=== PATIENT | female | born 1985 | race Caucasian/White ===

== ENCOUNTER 2019-04-17 | Inpatient (IN) | payer OTHER ==
[~2019-04-17] VITALS: Ht 160 cm; Wt 123.8 kg
[2019-04-17] VITALS (8 sets, daily range): BP systolic 155–211; BP diastolic 83–117
--- NOTE | ~2019-04-17 | CON ---
[address] [address] CONSULTATION Name: EUGENIO MARCOS [place] Room: [address] IN .R.#: [id number] Admission: 04/17/19 Attend Phys: Earl Todd MD Discharge: Date of : 81 Report #: [id number] THIS REPORT FOR: //name// CC: Earl Todd [facility] physician/PCP NEPHROLOGY CONSULTATION CHIEF COMPLAINT: Elevated creatinine. CONSULTING PHYSICIAN: Earl Todd MD HISTORY OF PRESENT ILLNESS: A 33-year-old female who is visiting from [place] and was planning to leave by the end of the week, comes in with chest pain, found to have an elevated troponin, was also having some palpitations, has underlying history of chronic kidney disease and she sees a cold storage worker in [place], has had a kidney biopsy in the past as well. Presently, she is not having any pain or shortness of breath and is feeling better. Denies any NSAID use. No nausea, vomiting or diarrhea. REVIEW OF SYSTEMS: Constitutional, psych, heme, eyes, ENT, respiratory, cardiac, GI, , endocrine, all negative except as documented above. PAST MEDICAL HISTORY: Insulin-dependent diabetes, hypertension, chronic kidney disease followed by cold storage worker in [place]. FAMILY HISTORY: Not pertinent to the clinical case. SOCIAL HISTORY: No alcohol. MEDICATIONS: Current medication reviewed. PHYSICAL EXAMINATION: VITAL SIGNS: Blood pressure 140/94, pulse 97, respirations 16 and temperature 36.9. GENERAL: No acute distress. EYES: Open. EARS: Externally normal. NECK: Supple. CARDIOVASCULAR: Regular rate and rhythm. LUNGS: No crackles heard. ABDOMEN: Soft, nontender and obese. MUSCULOSKELETAL: Nontender. PSYCHIATRIC: Awake and alert. LABORATORY DATA: White cell count 9.8, hemoglobin 12.3 and platelets 318. Sodium 135, potassium 4.1, chloride 99, bicarbonate 25, BUN 51, creatinine 3.9, [place] [address] CONSULTATION Name: EUGENIO MARCOS Room: [address]#: [id number] Admission: 04/17/19 Attend Phys: Earl Todd MD Discharge: Date of : 81 Report #: [id number] glucose 253, calcium 8.8, albumin 2.5. ASSESSMENT: 1. Acute kidney injury with admission creatinine of 3.9, prior values are not available. She has underlying chronic kidney disease and baseline again is not known. She was on Lasix as an outpatient. 2. Chronic kidney disease, early stage 3, followed by cold storage worker in [place], presumably secondary to diabetic nephropathy. 3. Insulin-dependent diabetes. 4. Hypertension. 5. Hypoalbuminemia with an albumin of 2.5. 6. Chest pain with elevated troponin. Cardiology has been consulted. The patient is currently n.p.o. PLAN: 1. Presently on IV fluids. 2. Check UA with micro. 3. Check kidney ultrasound. 4. Check CK. 5. She has had a kidney biopsy in the past and have some paperwork that her mother will be bringing in with further details about kidney function and kidney biopsy findings. We will not order any additional workup at this time. We will follow closely along with you. In the event that cardiac catheterization is needed, she obviously would be at high risk for worsening kidney function with any dye load. Continue hydration and to Cardiology assess this patient. Thank you for requesting my opinion in the care and management of this patient. By: [id number] Andreas [place] MD /nt
[2019-04-17] MEDS ORDERED: NIFEDIPINE ER60 M1 PO (00:14)
[2019-04-17] MEDS ORDERED: GLUCOTROL5 MG PO (00:14)
[2019-04-17] MEDS ORDERED: LOPRESSOR25 PO (00:14)
[2019-04-17] MEDS ORDERED: HUMALOG100 UNIT/1 SUBQ (00:15)
[2019-04-17] MEDS ORDERED: LANTUS100 UNIT/M SUBQ (00:15)
[2019-04-17] MEDS ORDERED: SYNTHROID50 MCG PO (00:15)
[2019-04-17] MEDS ORDERED: HYDRALAZINE 2525 MG PO (00:16)
[2019-04-17] MEDS ORDERED: LASIX 20 MG TAB20 MG PO (00:16)
[2019-04-17 01:25] LABS: ABSOLUTE BASOPHILS 0.1 thou/uL (0.0-0.2); ABSOLUTE EOSINOPHILS 0.1 thou/uL (0.0-0.7); ABSOLUTE LYMPHOCYTES 2.1 thou/uL (0.8-5.3); ABSOLUTE MONOCYTES 0.6 thou/uL (0.0-1.2); ABSOLUTE NEUTROPHILS 6.3 thou/uL (1.6-8.1); BASOPHILS 0.6 %; EOSINOPHILS 1.3 %; HEMATOCRIT 37.3 % (37.0-47.0); HEMOGLOBIN 12.3 gm/dL (12.0-15.0); LYMPHOCYTES 22.7 %; MCHC 33.1 g/dL (28.0-37.0); MCV 87.7 fL (80.0-100.0); MPV 7.7 fl. (7.2-11.1); NUCLEATED RBCS 0 /100WBC; PLATELET COUNT* 318 thou/uL (150-400); POLYS 68.4 %; RBC 4.25 mil/uL (4.20-5.00); RDW-CV 15.5 % (10.5-14.5); WBC 9.2 thou/uL (4.0-11.0)
[2019-04-17 01:31] LABS: CALCIUM 8.8 mg/dL (8.5-10.1); CREATININE 3.9 mg/dL (0.6-1.3); POTASSIUM 4.1 mmol/L (3.5-5.1)
[2019-04-17 01:36] LABS: APTT 27.7 Seconds (25.0-31.3); INR 1.1; PROTIME 11.4 Seconds (9.20-11.50)
[2019-04-17 01:40] LABS: ALBUMIN 2.5 g/dL (3.4-5.0); TOTAL BILIRUBIN 0.4 mg/dL (<0.1-1.0); TOTAL PROTEIN 7.2 g/dL (6.4-8.2)
[2019-04-17 01:41] LABS: TROPONIN-I LEVEL 1.01 ng/mL (<0.06)
[2019-04-17 13:55] LABS: CHOLESTEROL 228 mg/dL (<200); HDL CHOLESTEROL 34 mg/dL (>40); LDL CHOLESTEROL 119 mg/dL (<100); TC:HDL 6.7 Ratio (Not establshd); TRIGLYCERIDE 379 mg/dL (<150); VLDL 76 mg/dL (<40)
[2019-04-17 13:56] LABS: SERUM ASSESSMENT Clear
[2019-04-17 15:33] LABS: URINE BILIRUBIN NEGATIVE (Negative); URINE BLOOD 1+ (Negative); URINE CLARITY CLEAR; URINE COLOR YELLOW; URINE GLUCOSE-RANDOM 2+ (Negative); URINE KETONES NEGATIVE (Negative); URINE LEUKOCYTES NEGATIVE (Negative); URINE NITRITE NEGATIVE (Negative); URINE PROTEIN 3+ (Negative); URINE UROBILINOGEN 0.2 E.U./dl (0.2-1.0)
[2019-04-17 15:45] LABS: BACTERIA 1-9 Few /HPF (None Seen); CRYSTALS None Seen /LPF (None Seen); HYALINE CASTS 4-10 Moderate /LPF (None Seen); MUCUS None Seen strn/LPF (None Seen); SQUAMOUS >10 Many /LPF (0-3); URINE RBC 0-2 Rare /HPF (0-2); URINE WBC 0-5 Rare /HPF (0-5)
--- NOTE | 2019-04-17 15:54 | 2DMMODE ---
[place] [address] 2 D/M-MODE ECHOCARDIOGRAM Name: EUGENIO MARCOS Room: [address] IN [facility]#: [id number] Admission: 04/17/19 Attend Phys: Earl Todd, Discharge: Date of : 81 Date of Service: 04/17/19 1554 Report #: [id number] THIS REPORT FOR: //name// APPROVED REPORT Study performed: 04/17/2019 14:28:05 EXAM: Comprehensive 2D, Doppler, and color-flow Echocardiogram Patient Location: In-Patient Room #: ER Status: routine BSA: 2.17 HR: 97 bpm BP: 163/108 mmHg Rhythm: NSR Other Information Study Quality: Good Indications Non STEMI Chest Pain 2D Dimensions IVSd: 10.47 (7-11mm) LVOT Diam: 19.99 (18-24mm) LVDd: 34.38 mm PWd: 9.23 (7-11mm) Ascending Ao: 26.94 (22-36mm) LVDs: 21.91 (25-40mm) Aortic Root: 26.01 mm Volumes Left Atrial Volume (Systole) LA ESV Index: 33.50 mL/m2 Aortic Valve AoV Peak Enrrique.: 1.09 m/s AO Peak Gr.: 4.76 mmHg LVOT Max P.33 mmHg AO Mean Gr.: 2.74 mmHg LVOT Mean P.14 mmHg LVOT Max V: 0.76 m/s AO V2 VTI: 19.29 cm LVOT Mean V: 0.49 m/s JANICE (VTI): 2.19 cm2 LVOT V1 VTI: 13.44 cm Mitral Valve E/A Ratio: 1.26 MV Decel. Time: 143.65 [place] [address] 2 D/M-MODE ECHOCARDIOGRAM Name: EUGENIO MARCOS Room: [address]#: [id number] Admission: 04/17/19 Attend Phys: Ealr Todd, Discharge: Date of : 81 Date of Service: 04/17/19 1554 Report #: [id number] MV E Max Enrrique.: 1.12 m/s MV PHT: 41.66 ms MVA (PHT): 5.28 cm2 TDI E/Lateral E': 8.62 E/Medial E': 12.44 Medial E' Enrrique.: 0.09 m/s Lateral E' Enrrique.: 0.13 m/s Pulmonary Valve PV Peak Enrrique.: 1.61 m/s PV Peak Gr.: 10.37 mmHg Tricuspid Valve RAP Estimate: 5.00 mmHg TR Peak Gr.: 41.33 mmHg RVSP: 46.00 mmHg PA Pressure: 46.00 mmHg Left Ventricle The left ventricle is normal size. There is significant hypokinesis involving the distal inferior and septal curry and associated apex. There is normal left ventricular wall thickness. Left ventricular systolic function is preserved. LVEF is 55-60%. Transmitral Doppler flow pattern suggests impaired LV relaxation. Right Ventricle Right ventricle is dilated. The right ventricular systolic function is normal. Atria Left atrium is mildly dilated. Right atrium is dilated. Aortic Valve The aortic valve is normal in structure. No aortic regurgitation is present. There is no aortic valvular stenosis. Mitral Valve The mitral valve is normal in structure. Trace mitral regurgitation. No evidence of mitral valve stenosis. Tricuspid Valve The tricuspid valve is normal in structure. Mild tricuspid regurgitation. Moderate pulmonary hypertension. Pulmonic Valve The pulmonary valve is normal in structure. Mild [place] [address] 2 D/M-MODE ECHOCARDIOGRAM Name: EUGENIO MARCOS Room: [address]#: [id number] Admission: 04/17/19 Attend Phys: Earl Todd, Discharge: Date of : 81 Date of Service: 04/17/19 1554 Report #: [id number] Great Vessels The aortic root is normal in size. IVC is normal in size and collapses >50% with inspiration. Pericardium There is no pericardial effusion. <Conclusion> The left ventricle is normal size. There is normal left ventricular wall thickness. Left ventricular systolic function is preserved. LVEF is 55-60%. Transmitral Doppler flow pattern suggests impaired LV relaxation. There is significant hypokinesis involving the distal inferior and septal curry and associated apex. Left atrium is mildly dilated. Right atrium is dilated. Mild tricuspid regurgitation. Moderate pulmonary hypertension. IVC is normal in size and collapses >50% with inspiration. <ELECTRONICALLY SIGNED> By: Carlos Nguyễn MD, FACC 04/17/19 1554 1554 1554 Carlos Nguyễn MD, FACC /INF
--- NOTE | 2019-04-17 16:14 | EKG ---
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
--- NOTE | 2019-04-17 16:14 | EKG ---
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
[2019-04-18] VITALS (7 sets, daily range): BP systolic 118–155; BP diastolic 74–93
[2019-04-18 04:46] LABS: HEMATOCRIT 31.6 % (37.0-47.0); HEMOGLOBIN 10.7 gm/dL (12.0-15.0)
[2019-04-18 05:26] LABS: ALBUMIN 1.9 g/dL (3.4-5.0); CALCIUM 8.6 mg/dL (8.5-10.1); CREATININE 3.4 mg/dL (0.6-1.3); MAGNESIUM 2.1 mg/dL (1.8-2.4); PHOSPHORUS* 3.7 mg/dL (2.5-4.9); POTASSIUM 3.9 mmol/L (3.5-5.1)
[2019-04-18 05:29] LABS: TROPONIN-I LEVEL 11.79 ng/mL (<0.06)
[2019-04-18 05:51] LABS: CALCIUM 8.2 mg/dL (8.5-10.1); CREATININE 3.5 mg/dL (0.6-1.3); POTASSIUM 4.2 mmol/L (3.5-5.1)
[2019-04-19] VITALS: BP 142/91
[2019-04-19 01:11] LABS: CREATININE 3.7 mg/dL (0.6-1.3); POTASSIUM 4.5 mmol/L (3.5-5.1)
[2019-04-19 04:00] VITALS: BP 132/85
[2019-04-19 08:07] VITALS: BP 140/91
[2019-04-19 12:00] VITALS: BP 144/93
[2019-04-19] MEDS ORDERED: ASPIR 8181 MG PO (12:47)
[2019-04-19] MEDS ORDERED: LIPITOR 20 MG T20 M1 PO (12:48)
[2019-04-19] MEDS ORDERED: PLAVIX 75 MG TA75 M1 PO (12:48)
[2019-04-19] MEDS ORDERED: IMDUR 30 MG TAB30 M1 PO (12:49)
[2019-04-19] MEDS ORDERED: NITROGLYCERIN0.4 MG SUBLING (12:53)
== END 2019-04-19 13:48 | disposition home or self-care (01) | DRG 281 ==
LOC: M.ERS → M.TBA-ER 02:31 → M.2W 02:31
PROVIDERS: Internal Medicine; Internal Medicine Nephrology; Personal Emergency Response Attendant; Registered Nurse; ADMIT Internal Medicine
DX: I21.4 Non-ST elevation (NSTEMI) myocardial infarction (principal); N17.9 Acute kidney failure, unspecified; E11.22 Type 2 diabetes mellitus with diabetic chronic kidney disease; N18.9 Chronic kidney disease, unspecified; J45.909 Unspecified asthma, uncomplicated; F32.9 Major depressive disorder, single episode, unspecified; F41.9 Anxiety disorder, unspecified; I12.9 Hypertensive chronic kidney disease with stage 1 through stage 4 chronic kidney disease, or unspecified chronic kidney disease; E78.5 Hyperlipidemia, unspecified; Z79.82 Long term (current) use of aspirin; Z79.899 Other long term (current) drug therapy; Z88.2 Allergy status to sulfonamides; Z88.8 Allergy status to other drugs, medicaments and biological substances; Z79.4 Long term (current) use of insulin; Z83.3 Family history of diabetes mellitus; Z84.1 Family history of disorders of kidney and ureter